=== PATIENT | female | born 1965 | race Caucasian/White ===

== ENCOUNTER 2019-10-10 08:55 | Day surgery (SDC) | payer MEDICAID ==
[2019-10-03 11:03] LABS: ALBUMIN 3.7 g/dL (3.4-5.0); ALKALINE PHOSPHATASE 49 U/L (46-116); ALT/SGPT 31 U/L (14-59); AST/SGOT 23 U/L (15-37); BILIRUBIN TOTAL 0.3 mg/dL (0.20-1.00); CALCIUM 8.3 mg/dL (8.5-10.1); CARBON DIOXIDE 30.4 mmol/L (21-32); CHLORIDE SERUM 103 mmol/L (98-107); CREATININE SERUM 0.8 mg/dL (0.6-1.0); GFR1 > 60 mL/min; GLUCOSE SERUM 102 mg/dL (74-106); SODIUM SERUM 136 mmol/L (136-145); TOTAL PROTEIN, SERUM 7.4 g/dL (6.4-8.2)
[2019-10-03 11:38] LABS: BASOPHIL % 0.6 % (0-2); PLATELET COUNT 295 x10^3mcL (130-400); RED CELL DISTRIBUTION WIDTH 14.4 % (11.5-14.5)
--- NOTE | 2019-10-03 16:54 | NUR ---
CXR RESULT SEND/FAXED TO DR CHARLEE DENT OFFICE, AND A COPY OF CXR GIVEN TO ANESTHESIA FOR REVIEW.
--- NOTE | 2019-10-07 14:19 | NUR ---
CALL TO DR CHARLEE DENT'S OFFICE REGARDING PREOP CXR RESULTS. REFAXED REPORT. OFFICE WILL REVIEW WITH MD AND CALL WITH ANY FURTHER ORDERS.
[~2019-10-10] VITALS: Ht 165.1 cm; Wt 87.1 kg
[2019-10-10 09:32] VITALS: BP 131/76
[2019-10-10 18:03] VITALS: BP 123/82
== END 2019-10-10 17:50 | disposition home or self-care (01) ==
LOC: DS 08:55 → OR 12:30 → DS 17:50
PROVIDERS: ATTEND Surgery
DX: D05.11 Intraductal carcinoma in situ of right breast (principal); E03.9 Hypothyroidism, unspecified; E66.9 Obesity, unspecified; Z68.32 Body mass index [BMI] 32.0-32.9, adult; Z20.828 Contact with and (suspected) exposure to other viral communicable diseases; Z90.49 Acquired absence of other specified parts of digestive tract; Z87.891 Personal history of nicotine dependence
CPT/HCPCS: 88344; J0690; J1885; J2001; J2250; J2405; J2704; J3010; J3490; J7120; Q0092; U0003-CS